=== PATIENT | female | born 1995 | race Caucasian/White ===

== ENCOUNTER 2017-09-04 21:10 | Outpatient (CLI) | payer OTHER | END 2017-09-04 22:46 | disposition home or self-care (01) | LOC: M LDO 21:10 | DX: O47.1 False labor at or after 37 completed weeks of gestation (principal); Z3A.39 39 weeks gestation of pregnancy | CPT/HCPCS: 59025 ==

== ENCOUNTER 2017-09-05 15:22 | Inpatient (IN) | payer OTHER ==
[2017-09-05] MEDS ORDERED: FENTANYL 2MCG/ML ROPIVACAINE 0.2% IN 0.9% NACL 200ML IVBAG As Ordered (16:04)
[2017-09-05 16:38] LABS: HEMATOCRIT 35.3 % (36.0-47.0); HEMOGLOBIN 12.2 g/dl (12.0-15.5); MEAN CORPUSCULAR HEMOGLOBIN 28.8 pg (27.0-33.0); MEAN CORPUSCULAR HGB CONC 34.6 g/dl (32.0-36.5); MEAN CORPUSCULAR VOLUME 83.3 fl (80.0-96.0); PLATELET COUNT, AUTOMATED 149 10^3/uL (150-450); RED BLOOD COUNT 4.24 10^6/uL (4.00-5.40); RED CELL DISTRIBUTION WIDTH 12.9 % (11.5-14.5); WHITE BLOOD COUNT 15.9 10^3/uL (4.0-10.0)
[2017-09-05 16:50] LABS: AMPHETAMINES URINE REFLEX NEGATIVE (NEGATIVE); BARBITURATES URINE REFLEX NEGATIVE (NEGATIVE); BENZODIAZEPINES URINE REFLEX NEGATIVE (NEGATIVE); CANNABINOIDS URINE REFLEX NEGATIVE (NEGATIVE); COCAINE METABOLITE URINE REFLE NEGATIVE (NEGATIVE); METHADONE URINE REFLEX NEGATIVE (NEGATIVE); OPIATES URINE REFLEX NEGATIVE (NEGATIVE); PHENCYCLIDINE URINE REFLEX NEGATIVE (NEGATIVE)
[2017-09-05] MEDS: LACTATED RINGER'S 1000 ML IV (16:56)
[2017-09-05] MEDS: LR 1,000 ML IV (16:57)
[2017-09-05] MEDS: PENICILLIN G POTASSIUM IV 5 MU in D5W MINI-BAG PLUS 100 ML IV (16:57)
[2017-09-05 18:08] LABS: HBSAG L&D NEGATIVE (NEGATIVE)
[2017-09-05] MEDS ORDERED: EPIDURAL/PCA KEYS XX (18:15)
[2017-09-05] MEDS ORDERED: ePHEDrine SULFATE 25 MG/5 ML(5MG/ML) SYRINGE IV (18:15)
[2017-09-05] MEDS ORDERED: ONDANSETRON 4MG/2ML VIAL (J2405) IV (18:15)
[2017-09-05] MEDS ORDERED: NALOXONE INJ 0.4 MG/1 ML VIAL (J2310) IV (18:15)
[2017-09-05] MEDS ORDERED: LACTATED RINGER'S 1000 ML IV (18:15)
[2017-09-05] MEDS ORDERED: FENTANYL/ROPIVACAINE/NACL BAG 200 ML EPIDURAL (18:15)
[2017-09-05] MEDS ORDERED: diphenhydrAMINE INJ 50MG/ML VIAL (J1200) IV (18:15)
[2017-09-05] MEDS ORDERED: EPIDURAL COMMENT XX (18:15)
[2017-09-05] MEDS ORDERED: REFRIGERATOR IV KEYS XX (18:15)
[2017-09-05] MEDS ORDERED: PENICILLIN G POTASSIUM IV 2.5 MU in APPROPRIATE DILUENT 1 EA IV (21:00)
[2017-09-05] MEDS ORDERED: OXYTOCIN DRIP 30 UNITS in APPROPRIATE DILUENT 1 EA IV (22:15)
[2017-09-05] MEDS ORDERED: OXYTOCIN 30 UNITS IN 0.9% NaCl 500ML IV BAG (J2590) As Ordered (22:16)
[2017-09-06] MEDS ORDERED: ACETAMINOPHEN 500 MG TAB As Ordered (01:04)
[2017-09-06] MEDS ORDERED: DIBUCAINE 1% OINTMENT 30GM TOP (05:15)
[2017-09-06] MEDS ORDERED: METHYLERGONOVINE MALEATE 0.2 MG/ML VIAL (J2210) IM (05:15)
[2017-09-06] MEDS ORDERED: PROMETHAZINE 25 MG TAB PO (05:15)
[2017-09-06] MEDS ORDERED: ONDANSETRON 4MG/2ML VIAL (J2405) IV (05:15)
[2017-09-06] MEDS ORDERED: PHYTONADIONE 1 MG/0.5 ML SYRINGE (J3430) As Ordered (05:49)
[2017-09-06] MEDS ORDERED: ERYTHROMYCIN OPHTH OINT As Ordered (05:49)
[2017-09-06] MEDS ORDERED: HEPATITIS B VAC *BIRTH DOSE ONLY*(ENGERIX) 10 MCG/0.5 ML SYRINGE As Ordered (05:49)
[2017-09-06] MEDS: OXYTOCIN DRIP 30 UNITS in APPROPRIATE DILUENT 1 EA IV (07:14)
[2017-09-06] MEDS: MEASLES,MUMPS,RUBELLA VACCINE INJ (MMR-II) (90707) SC (07:23)
[2017-09-06] MEDS: RHOGAM 300 MCG (1500 IU) INJ (J2790) IM (07:23)
[2017-09-06] MEDS: DOCUSATE SODIUM 100 MG CAP PO ×2 (07:31→19:51)
[2017-09-06] MEDS: PRENATAL VITAMINS CHEWABLE TABLET PO (07:31)
[2017-09-06] MEDS: ACETAMINOPHEN 500 MG TAB PO (07:32)
[2017-09-06] MEDS: IBUPROFEN 800 MG TAB PO (19:52)
[2017-09-07] MEDS: PRENATAL VITAMINS CHEWABLE TABLET PO (07:59)
[2017-09-07] MEDS: DOCUSATE SODIUM 100 MG CAP PO (07:59)
== END 2017-09-07 14:44 | disposition home or self-care (01) | DRG 775 ==
LOC: M LDO 15:22 → M OBS 09-06 07:13 → M LDI 16:00
PROVIDERS: Obstetrics & Gynecology
PROC: 10E0XZZ Delivery of Products of Conception, External Approach (ICD-10-PCS; principal; 2017-09-06)
DX: O48.0 Post-term pregnancy (principal); Z37.0 Single live birth; Z3A.40 40 weeks gestation of pregnancy; E66.9 Obesity, unspecified; O99.824 Streptococcus B carrier state complicating childbirth; O99.214 Obesity complicating childbirth